=== PATIENT | male | born 1995 | race Two or more races ===

== ENCOUNTER 2024-02-14 02:00 | Emergency (ER) | payer OTHER ==
[~2024-02-14] VITALS: Ht 180.3 cm; Wt 76.2 kg
[2024-02-14 04:05] VITALS: BP 118/73; TEMP 98
[2024-02-14] MEDS ORDERED: KETO10TA2 PO (05:40)
[2024-02-14] MEDS ORDERED: KETOROLAC TROMETHAMINE INJ 30 MG/ML VIAL ONE (05:42)
[2024-02-14] MEDS: KETOROLAC TROMETHAMINE INJ 30 MG/ML VIAL IM ONE (05:49)
[2024-02-14 05:50] VITALS: O2SAT 99
== END 2024-02-14 06:13 | disposition home or self-care (01) ==
LOC: ER 02:05
DX: M75.101 Unspecified rotator cuff tear or rupture of right shoulder, not specified as traumatic (principal); M25.511 Pain in right shoulder; F17.200 Nicotine dependence, unspecified, uncomplicated
CPT/HCPCS: 99283; 73030; J1885